=== PATIENT | male | born 1980 | race Caucasian/White ===

== ENCOUNTER 2019-04-02 09:40 | Emergency (ER) | payer OTHER ==
[~2019-04-02] VITALS: Ht 193 cm; Wt 109.1 kg
[2019-04-02 09:42] VITALS: BP 149/102
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
--- NOTE | 2019-04-02 10:21 | NUR ---
Pt transported on gurney to [facility] from [facility] RME room 7. MECHELLEN.
== END 2019-04-02 11:24 | disposition home or self-care (01) ==
LOC: ED 10:18
DX: S16.1XXA Strain of muscle, fascia and tendon at neck level, initial encounter (principal); J34.1 Cyst and mucocele of nose and nasal sinus; R51 Headache; V49.49XA Driver injured in collision with other motor vehicles in traffic accident, initial encounter; Y93.89 Activity, other specified; Y92.410 Unspecified street and highway as the place of occurrence of the external cause; Y99.8 Other external cause status
CPT/HCPCS: 70450; 72125; 99284